=== PATIENT | female | born 1975 | race Caucasian/White ===

== ENCOUNTER 2017-03-04 08:10 | Emergency (ER) | payer BC, OTHER ==
[~2017-03-04] VITALS: Ht 157.5 cm; Wt 90.7 kg
[2017-03-04 08:28] LABS: URINE BILIRUBIN NEGATIVE (Negative); URINE BLOOD 3+ (Negative); URINE COLOR YELLOW; URINE GLUCOSE-RANDOM* NEGATIVE (Negative); URINE KETONES NEGATIVE (Negative); URINE NITRITE NEGATIVE (Negative); URINE PROTEIN (DIPSTICK) TRACE (Negative); URINE SPECIFIC GRAVITY >= 1.030 (1.003-1.035); URINE UROBILINOGEN 0.2 E.U./dl (0.2-1.0)
[2017-03-04 08:35] LABS: ABSOLUTE NEUTROPHILS 4.9 thou/uL (1.4-8.2); BASOPHILS 0.9 % (0.0-2.0); EOSINOPHILS 4.7 % (0.0-3.0); HEMOGLOBIN 12.7 gm/dL (12.0-15.0); LYMPHOCYTES 22.1 % (24.0-44.0); MCHC 33.4 g/dL (28.0-37.0); MCV 86.8 fL (80.0-100.0); MONOCYTES 7.5 % (1.0-8.0); PLATELET COUNT 376 thou/uL (150-400); POLYS 64.8 % (36.0-66.0); RBC 4.37 mil/uL (4.20-5.00); RDW 13.1 % (10.5-14.5); WBC 7.6 thou/uL (4.0-11.0)
[2017-03-04 08:42] LABS: CALCIUM 8.7 mg/dL (8.5-10.1); CREATININE 0.7 mg/dL (0.6-1.0); POTASSIUM 3.6 mmol/L (3.5-5.1)
[2017-03-04 08:55] LABS: MANUAL DIFF NO
[2017-03-04 09:01] LABS: BACTERIA >30 Many /HPF (None Seen); CASTS None Seen /LPF (None Seen); CRYSTALS None Seen /LPF (None Seen); SQUAMOUS >10 Many /LPF (0-3); URINE RBC 3-10 Few /HPF (0-2); URINE WBC 0-5 Rare /HPF (0-5)
[2017-03-04] MEDS ORDERED: NORCO 5-325 TA1 EACH PO (09:39)
[2017-03-04] MEDS ORDERED: ZOFRAN ODT4 MG PO (09:39)
[2017-03-04] MEDS ORDERED: FLOMAX0.4 MG PO (09:39)
[2017-03-04 09:55] VITALS: BP 118/54
== END 2017-03-04 09:56 | disposition home or self-care (01) ==
LOC: ER 08:10
PROVIDERS: Emergency Medicine
DX: N20.1 Calculus of ureter (principal); Z88.2 Allergy status to sulfonamides

== ENCOUNTER 2018-07-13 08:01 | Emergency (ER) | payer BC, OTHER ==
[~2018-07-13] VITALS: Ht 157.5 cm; Wt 68.0 kg
[~2018-07-13 08:01] MED LIST: FLOMAX0.4 MG PO; NORCO 5-325 TA1 EACH PO; ZOFRAN ODT4 MG PO
[2018-07-13] MEDS ORDERED: NORCO 5-325 TA1 EACH PO (08:54)
[2018-07-13 09:32] VITALS: BP 141/79
== END 2018-07-13 09:33 | disposition home or self-care (01) ==
LOC: ER 08:01
DX: S93.621A Sprain of tarsometatarsal ligament of right foot, initial encounter (principal); Z88.2 Allergy status to sulfonamides; W00.0XXA Fall on same level due to ice and snow, initial encounter; Y93.89 Activity, other specified; Y92.89 Other specified places as the place of occurrence of the external cause; Y99.8 Other external cause status

== ENCOUNTER 2021-04-05 09:45 | Emergency (ER) | payer BC, OTHER ==
[~2021-04-05] VITALS: Ht 157.5 cm; Wt 95.7 kg
[2021-04-05 10:17] LABS: URINE BILIRUBIN NEGATIVE (Negative); URINE BLOOD TRACE (Negative); URINE CLARITY CLEAR; URINE COLOR YELLOW; URINE GLUCOSE-RANDOM* NEGATIVE (Negative); URINE KETONES NEGATIVE (Negative); URINE NITRITE-REFLEX NEGATIVE (Negative); URINE PROTEIN (DIPSTICK) NEGATIVE (Negative); URINE UROBILINOGEN 0.2 E.U./dl (0.2-1.0)
[2021-04-05 10:18] LABS: URINE LEUKOCYTES-REFLEX 1+ (Negative)
[2021-04-05 10:32] LABS: WBC 5.3 thou/uL (4.0-11.0)
[2021-04-05 10:33] LABS: ABSOLUTE NEUTROPHILS 3.5 thou/uL (1.4-8.2); EOSINOPHILS 4.4 % (0.0-3.0); HEMATOCRIT 38.9 % (37.0-47.0); HEMOGLOBIN 12.8 gm/dL (12.0-15.0); LYMPHOCYTES 21.1 % (24.0-44.0); MCH 28.6 pg (26.0-34.0); MCHC 32.8 g/dL (28.0-37.0); MCV 87.1 fL (80.0-100.0); MONOCYTES 7.8 % (1.0-8.0); PLATELET COUNT 376 thou/uL (150-400); POLYS 65.7 % (36.0-66.0); RBC 4.47 mil/uL (4.20-5.00); RDW 13.6 % (10.5-14.5)
[2021-04-05 10:45] LABS: ANION GAP 11 mmol/L (7-16); BUN 16 mg/dL (7-18); CHLORIDE 105 mmol/L (98-107); CO2 25 mmol/L (21-32); CREATININE 0.7 mg/dL (0.6-1.0); GLUCOSE 112 mg/dL (74-106); POTASSIUM 4.1 mmol/L (3.5-5.1); SODIUM 141 mmol/L (136-145)
[2021-04-05 10:47] LABS: APTT 26.6 Seconds (24.5-32.8); INR 0.99; PROTIME 10.8 Seconds (10.5-12.1)
[2021-04-05 10:55] LABS: ALBUMIN 3.5 g/dL (3.4-5.0); SGOT 18 U/L (15-37); SGPT 40 U/L (14-59); TOTAL BILIRUBIN 0.2 mg/dL (0.2-1.0); TOTAL PROTEIN 7.5 g/dL (6.4-8.2)
[2021-04-05 11:27] LABS: CASTS None Seen /LPF (None Seen); CRYSTALS None Seen /LPF (None Seen); SQUAMOUS >10 Many /LPF (0-3)
[2021-04-05 11:28] LABS: BACTERIA-REFLEX 1-9 Few /HPF (None Seen); URINE RBC 1-2 Rare /HPF (NONE SEEN); URINE WBC-REFLEX 6-15 Few /HPF (0-5)
[2021-04-05] MEDS ORDERED: ASA81BEC PO (11:28)
[2021-04-05 11:34] VITALS: BP 141/83
--- NOTE | 2021-04-06 07:58 | EKG ---
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[place] : 1975 Requested By: Alexandre Beasley Order Number: [id number] MD: Horace Camarillo Measurements Intervals [place] Rate: 73 P: 55 NM: 156 QRS: 11 QRSD: 96 T: 32 QT: 387 QTc: 427 Interpretive Statements Sinus rhythm RSR' in V1 or V2, right VCD or RVH No previous ECG available for comparison Electronically Signed On 04-06-2021 7:57:40 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
== END 2021-04-05 11:35 | disposition home or self-care (01) ==
LOC: ER 09:45
PROVIDERS: Emergency Medicine
DX: R20.2 Paresthesia of skin (principal); H53.9 Unspecified visual disturbance; Z88.2 Allergy status to sulfonamides